=== PATIENT | female | born 1960 | race Two or more races ===

== ENCOUNTER 2025-05-12 19:31 | Emergency (ER) | payer OTHER ==
[~2025-05-12] VITALS: Ht 162.6 cm; Wt 59.0 kg
[2025-05-12] MEDS ORDERED: ATORVASTATIN CA10 MG (19:45)
[2025-05-12] MEDS ORDERED: ZESTRIL5 MG (19:45)
[2025-05-12] MEDS ORDERED: KETOROLAC TROMETHAMINE 30 MG VIAL IV ONE (21:00)
[2025-05-12] MEDS ORDERED: KETOROLAC TROMETHAMINE 30 MG VIAL ONE (21:05)
[2025-05-13] MEDS ORDERED: MORPHINE SULFATE 4 MG/ML CARTRIDGE IV ONE (01:45)
== END 2025-05-13 04:17 | disposition home or self-care (01) ==
LOC: ER 19:31
DX: S79.811A Other specified injuries of right hip, initial encounter (principal); W19.XXXA Unspecified fall, initial encounter; Y93.89 Activity, other specified; Y92.59 Other trade areas as the place of occurrence of the external cause; Y99.8 Other external cause status; M25.551 Pain in right hip; M25.562 Pain in left knee; I10 Essential (primary) hypertension; Z88.6 Allergy status to analgesic agent
CPT/HCPCS: 72192; 73564; 96365; 99284; J1885; J2270